=== PATIENT | male | born 1930 | race Native Hawaiian/Other Pacific Islander ===

== ENCOUNTER 2020-01-23 15:03 | Outpatient (CLI) | payer OTHER | END 2020-01-23 22:30 | disposition home or self-care (01) | LOC: CT 15:03 | DX: R27.0 Ataxia, unspecified (principal); R53.1 Weakness | CPT/HCPCS: 93005 ==

== ENCOUNTER 2020-01-25 13:58 | Outpatient (CLI) | payer OTHER | END 2020-01-25 19:04 | disposition home or self-care (01) | LOC: MRI 13:58 | DX: R27.0 Ataxia, unspecified (principal); R53.1 Weakness ==

== ENCOUNTER 2020-05-22 13:46 | Outpatient (CLI) | payer OTHER | END 2020-05-22 23:35 | disposition home or self-care (01) | LOC: RAD 13:46 | DX: I10 Essential (primary) hypertension (principal); E78.49 Other hyperlipidemia; E03.8 Other specified hypothyroidism; I48.91 Unspecified atrial fibrillation; J44.9 Chronic obstructive pulmonary disease, unspecified; Z86.73 Personal history of transient ischemic attack (TIA), and cerebral infarction without residual deficits; E53.8 Deficiency of other specified B group vitamins; M19.90 Unspecified osteoarthritis, unspecified site ==

== ENCOUNTER 2020-11-13 10:19 | Emergency (ER) | payer OTHER ==
[~2020-11-13] VITALS: Ht 180.3 cm; Wt 61.7 kg
[2020-11-13] MEDS ORDERED: APIX1TAB PO (10:44)
[2020-11-13 10:48] LABS: PLATELET COUNT 172 K/uL (142-355)
[2020-11-13 10:51] LABS: POTASSIUM 4.3 mmol/L (3.6-5.2)
[2020-11-13 11:07] LABS: PARTIAL THROMBOPLASTIN TIME 27.7 SECONDS (24.5-33.6)
[2020-11-13 12:04] VITALS: BP 116/66; TEMP 97.9
== END 2020-11-13 12:04 | disposition home or self-care (01) ==
LOC: ED 10:19
PROVIDERS: Family Medicine
DX: R53.1 Weakness (principal); M79.605 Pain in left leg; M79.604 Pain in right leg
CPT/HCPCS: 80053; 81000; 85027; 85610; 85730; 99283; 99284

== ENCOUNTER 2021-02-27 08:52 | Outpatient (CLI) | payer OTHER ==
[~2021-02-27 08:52] MED LIST: APIX1TAB PO
== END 2021-02-27 23:11 | disposition home or self-care (01) ==
LOC: CT 08:52
PROVIDERS: ATTEND Specialist
DX: R31.0 Gross hematuria (principal)